=== PATIENT | male | born 2000 | race Caucasian/White ===

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

== ENCOUNTER 2022-01-13 15:46 | Emergency (ER) | payer BC, OTHER ==
[~2022-01-13] VITALS: Ht 181 cm; Wt 112.0 kg
[2022-01-13] MEDS ORDERED: NS IV 1000 ML 1,000 ML IV STA (15:58)
[2022-01-13] MEDS ORDERED: KETOROLAC 30 MG/ML VIAL IVP STA (15:58)
[2022-01-13 16:25] LABS: BASOPHILS % (AUTO) 0 % (0-10); EOSINOPHILS % (AUTO) 0 % (0-10); HEMATOCRIT 44 % (40-54); HEMOGLOBIN 15.6 g/dL (13.3-17.7); LYMPHOCYTES % (AUTO) 9 % (12-44); MEAN CORPUSCULAR HEMOGLOBIN 30 pg (25-34); MEAN CORPUSCULAR HGB CONC 35 g/dL (32-36); MEAN CORPUSCULAR VOLUME 85 fL (80-99); MEAN PLATELET VOLUME 9.9 fL (9.0-12.2); MONOCYTES # (AUTO) 0.6 10^3/uL (0.0-1.0); MONOCYTES % (AUTO) 5 % (0-12); NEUTROPHILS # (AUTO) 9.2 10^3/uL (1.8-7.8); NEUTROPHILS % (AUTO) 85 % (42-75); PLATELET COUNT 200 10^3/uL (130-400); WHITE BLOOD COUNT 10.9 10^3/uL (4.3-11.0)
--- NOTE | 2022-01-13 16:28 | ED GI ---
General Chief Complaint: Abdominal/GI Problems Stated Complaint: ABD PAIN Nursing Triage Note: Patient has presented to ER with cc of left side abd tenderness, loose stools, and nausea for the last 3 days. He reports that he vomited 2 days ago. He did take pepto bismol for his symptoms. History of Present Illness Date Seen by Provider: Jan 13, 2022 Time Seen by Provider: 16:01 Initial Comments 21-year-old male presents with diffuse abdominal pain. He reports that started 3 days ago with initially some left back pain that is radiating into the left mid abdomen and now into both left lower abdomens. He reports he vomited 2 days ago. That he has been having some diarrhea. These taken some Pepto for symptoms but with minimal relief. He has not vomited since 2 days ago. He denies any fever or chills. Patient came in today because the symptoms keep getting worse. Patient denies any fever or chills. He denies any urinary symptoms, cough, sore throat or other systemic complaints. Allergies and Home Medications Allergies Coded Allergies: No Known Drug Allergies (Unverified , 06/21/19) Patient Home Medication List Home Medication List Reviewed: Yes Ondansetron (Ondansetron Odt) 4 Mg Tab.rapdis, 4 MG PO Q6H PRN for NAUSEA/VOMITING Prescribed by: PIPER DELEON on 01/13/22 1508 Review of Systems Review of Systems Constitutional: No chills, No fever Respiratory: Denies Cough, Denies Shortness of Air Cardiovascular: Denies Chest Pain, Denies Lightheadedness Gastrointestinal: Abdominal Pain, Diarrhea, Nausea, Vomiting Genitourinary: No Symptoms Reported Musculoskeletal: back pain Skin: no symptoms reported Psychiatric/Neurological: No Symptoms Reported Endocrine: No Symptoms Reported Hematologic/Lymphatic: No Symptoms Reported Past Ejncpnr-Ebozby-Blfnof Hx Patient Social History Tobacco Use?: Yes Substance use?: No Alcohol Use?: Yes Alcohol type: Beer Alcohol Frequency: Daily Seasonal Allergies Seasonal Allergies: No Past Medical History Surgeries: Yes (Cranial Surgery to reshape skull bones) Respiratory: No Cardiac: No Neurological: No Genitourinary: No Gastrointestinal: No Musculoskeletal: Yes (Craniosinastosis) Endocrine: No HEENT: No Cancer: No Psychosocial: No Integumentary: No Physical Exam Vital Signs Vital Signs - First Documented 01/13/22 15:59 Temp 36.8 Pulse 120 Resp 16 B/P (MAP) 139/92 (108) Pulse Ox 98 O2 Delivery Room Air Capillary Refill : Height/Weight/BMI Height: '" Weight: lbs. oz. kg; 34.00 BMI Method: General Appearance: WD/WN, no apparent distress Respiratory: chest non-tender, lungs clear, normal breath sounds Cardiovascular: normal peripheral pulses, regular rate, rhythm Gastrointestinal: soft; No distended, No guarding, No rebound; tenderness (Diffuse) Neurologic/Psychiatric: alert, normal mood/affect, oriented x 3 Skin: normal color, warm/dry Progress/Results/Core Measures Results/Orders Lab Results Laboratory Tests Test 01/13/22 16:14 01/13/22 17:06 Range/Units White Blood Count 10.9 4.3-11.0 10^3/uL Red Blood Count 5.19 4.30-5.52 10^6/uL Hemoglobin 15.6 13.3-17.7 g/dL Hematocrit 44 40-54 % Mean Corpuscular Volume 85 80-99 fL Mean Corpuscular Hemoglobin 30 25-34 pg Mean Corpuscular Hemoglobin Concent 35 32-36 g/dL Red Cell Distribution Width 11.9 10.0-14.5 % Platelet Count 200 130-400 10^3/uL Mean Platelet Volume 9.9 9.0-12.2 fL Immature Granulocyte % (Auto) 0 % Neutrophils (%) (Auto) 85 H 42-75 % Lymphocytes (%) (Auto) 9 L 12-44 % Monocytes (%) (Auto) 5 0-12 % Eosinophils (%) (Auto) 0 0-10 % Basophils (%) (Auto) 0 0-10 % Neutrophils # (Auto) 9.2 H 1.8-7.8 10^3/uL Lymphocytes # (Auto) 1.0 1.0-4.0 10^3/uL Monocytes # (Auto) 0.6 0.0-1.0 10^3/uL Eosinophils # (Auto) 0.0 0.0-0.3 10^3/uL Basophils # (Auto) 0.0 0.0-0.1 10^3/uL Immature Granulocyte # (Auto) 0.0 0.0-0.1 10^3/uL Sodium Level 138 135-145 MMOL/L Potassium Level 3.9 3.6-5.0 MMOL/L Chloride Level 102 98-107 MMOL/L Carbon Dioxide Level 19 L 21-32 MMOL/L Anion Gap 17 H 5-14 MMOL/L Blood Urea Nitrogen 7 7-18 MG/DL Creatinine 0.81 0.60-1.30 MG/DL Estimat Glomerular Filtration Rate 129 BUN/Creatinine Ratio 9 Glucose Level 100 70-105 MG/DL Calcium Level 9.3 8.5-10.1 MG/DL Corrected Calcium 8.9 8.5-10.1 MG/DL Magnesium Level 1.7 1.6-2.4 MG/DL Total Bilirubin 0.3 0.1-1.0 MG/DL Aspartate Amino Transf (AST/SGOT) 32 5-34 U/L Alanine Aminotransferase (ALT/SGPT) 74 H 0-55 U/L Alkaline Phosphatase 78 40-136 U/L C-Reactive Protein 5.93 H <0.50 MG/DL Total Protein 7.7 6.4-8.2 GM/DL Albumin 4.5 3.2-4.5 GM/DL Urine Color YELLOW Urine Clarity CLEAR Urine pH 6.0 5-9 Urine Specific [place] 1.020 1.016-1.022 Urine Protein NEGATIVE NEGATIVE Urine Glucose (UA) NEGATIVE NEGATIVE Urine Ketones 2+ H NEGATIVE Urine Nitrite NEGATIVE NEGATIVE Urine Bilirubin 1+ H NEGATIVE Urine Urobilinogen 0.2 < = 1.0 MG/DL Urine Leukocyte Esterase NEGATIVE NEGATIVE Urine RBC (Auto) TRACE-I H NEGATIVE Urine RBC 2-5 H /HPF Urine WBC RARE /HPF Urine Squamous Epithelial Cells NONE /HPF Urine Crystals NONE /LPF Urine Bacteria NEGATIVE /HPF Urine Casts NONE /LPF Urine Mucus MODERATE H /LPF Urine Culture Indicated NO My Orders Orders - DELEON,PIPER L DO Cbc With Automated Diff (01/13/22 15:58) Comprehensive Metabolic Panel (01/13/22 15:58) Magnesium (01/13/22 15:58) Ua Culture If Indicated (01/13/22 15:58) Crp Fs (01/13/22 15:58) Ns Iv 1000 Ml (Sodium Chloride 0.9%) (01/13/22 15:58) Ketorolac Injection (Toradol Injection) (01/13/22 15:58) Abdomen Flat & Upright/Decub (01/13/22 15:58) Ct Abdomen/Pelvis Wo (01/13/22 17:19) Ondansetron Oral Dissolve Tab (Zofran (01/13/22 18:10) Vital Signs/I&O 01/13/22 01/13/22 15:59 18:03 Temp 36.8 36.8 Pulse 120 98 Resp 16 16 B/P (MAP) 139/92 (108) 131/85 Pulse Ox 98 98 O2 Delivery Room Air Room Air Blood Pressure Mean: 108 Progress Progress Note : Progress Note Patient's likely with a viral syndrome. Patient did have pains over the flank h as some blood in his urine and some vomiting so we did CT him for kidney stone it was negative. There was no other acute findings on the CT for any other intra-abdominal issues. Patient will be prescribed Zofran. Recommended clear liquid diet Tylenol and ibuprofen as needed. Patient stable and discharged Diagnostic Imaging Diagonstic Imaging: CT Plain Films/CT/US/NM/MRI: abdomen Comments Date of Exam:01/13/22 CT ABDOMEN/PELVIS WO PROCEDURE: CT abdomen and pelvis without contrast. TECHNIQUE: Multiple contiguous axial images were obtained through the abdomen and pelvis without the use of intravenous contrast. Auto Exposure Controls were utilized during the CT exam to meet ALARA standards for radiation dose reduction. INDICATION: Flank pain. Hematuria. COMPARISON: Abdominal radiographs from 01/13/2022. FINDINGS: Diffuse fatty infiltration of the liver. The gallbladder, pancreas, spleen, adrenals, kidneys, collecting systems and bladder are negative on this noncontrast exam. Small amount of contrast within the small bowel. No evidence of bowel obstruction. Normal appendix. No free intraperitoneal air or fluid. No lymphadenopathy. No acute osseous findings. IMPRESSION: 1. No acute CT findings in the abdomen or pelvis. 2. Hepatic steatosis. Reviewed: Reviewed/Discussed Diagonstic Imaging: Xray Plain Films/CT/US/NM/MRI: abdomen Comments Date of Exam:01/13/22 ABDOMEN FLAT & UPRIGHT/DECUB INDICATION: Lower abdominal pain and diarrhea FINDINGS: Right pelvic calcifications are likely phleboliths but in the appropriate clinical scenario could reflect a distal ureteral stone or stones. The bowel gas pattern unremarkable. No evidence for obstruction. No abnormal fecal loading. IMPRESSION: No acute finding identified. Right pelvic calcifications of uncertain etiology. Reviewed: Reviewed by Me, Reviewed/Discussed Departure Impression Primary Impression: Viral gastroenteritis Disposition: 01 HOME, SELF-CARE Condition: Stable Departure-Patient Inst. Referrals: NO,LOCAL PHYSICIAN (PCP/Family) Primary Care Physician Patient Instructions: Viral Gastroenteritis in Adults Add. Discharge Instructions: Clear liquid diet, advance diet as tolerated Tylenol or ibuprofen as needed for discomfort Encourage you to drink plenty of fluid All discharge instructions reviewed with patient and/or family. Voiced understanding. Scripts Ondansetron (Ondansetron Odt) 4 Mg Tab.rapdis 4 MG PO Q6H PRN for NAUSEA/VOMITING, #20 TAB 0 Refills Prov: PIPER DELEON DO 01/13/22 PIPER DELEON DO Jan 13, 2022 16:28
--- NOTE | 2022-01-13 16:33 | Diagnostic Imaging Report ---
INDICATION: Lower abdominal pain and diarrhea FINDINGS: Right pelvic calcifications are likely phleboliths but in the appropriate clinical scenario could reflect a distal ureteral stone or stones. The bowel gas pattern unremarkable. No evidence for obstruction. No abnormal fecal loading. IMPRESSION: No acute finding identified. Right pelvic calcifications of uncertain etiology. Dictated by: Dictated on workstation # [id number]
[2022-01-13 16:43] LABS: ALBUMIN 4.5 GM/DL (3.2-4.5); BILIRUBIN,TOTAL 0.3 MG/DL (0.1-1.0); CALCIUM 9.3 MG/DL (8.5-10.1); CREATININE SERUM 0.81 MG/DL (0.60-1.30); MAGNESIUM 1.7 MG/DL (1.6-2.4); POTASSIUM 3.9 MMOL/L (3.6-5.0); TOTAL PROTEIN 7.7 GM/DL (6.4-8.2)
[2022-01-13 17:13] LABS: CLARITY,URINE CLEAR; COLOR,URINE YELLOW; PROTEIN,URINE NEGATIVE (NEGATIVE)
[2022-01-13 17:14] LABS: BACTERIA,URINE NEGATIVE /HPF; BILIRUBIN,URINE 1+ (NEGATIVE); GLUCOSE, URINE (UA) NEGATIVE (NEGATIVE); KETONES,URINE 2+ (NEGATIVE); LEUKOCYTE ESTERASE ,URINE NEGATIVE (NEGATIVE); NITRITE,URINE NEGATIVE (NEGATIVE); WBC,URINE RARE /HPF
--- NOTE | 2022-01-13 17:49 | Diagnostic Imaging Report ---
PROCEDURE: CT abdomen and pelvis without contrast. TECHNIQUE: Multiple contiguous axial images were obtained through the abdomen and pelvis without the use of intravenous contrast. Auto Exposure Controls were utilized during the CT exam to meet ALARA standards for radiation dose reduction. INDICATION: Flank pain. Hematuria. COMPARISON: Abdominal radiographs from 01/13/2022. FINDINGS: Diffuse fatty infiltration of the liver. The gallbladder, pancreas, spleen, adrenals, kidneys, collecting systems and bladder are negative on this noncontrast exam. Small amount of contrast within the small bowel. No evidence of bowel obstruction. Normal appendix. No free intraperitoneal air or fluid. No lymphadenopathy. No acute osseous findings. IMPRESSION: 1. No acute CT findings in the abdomen or pelvis. 2. Hepatic steatosis. Dictated by: Dictated on workstation # [id number]
[2022-01-13] MEDS ORDERED: ONDA4TAB11 PO (17:59)
[2022-01-13 18:03] VITALS: BP 131/85
[2022-01-13] MEDS ORDERED: ONDANSETRON 4 MG (ZOFRAN) ORAL DISSOLVE TAB PO STA (18:10)
== END 2022-01-13 18:03 | disposition home or self-care (01) ==
LOC: EDUNIT# 15:46 → ER FS 15:47
DX: A08.4 Viral intestinal infection, unspecified (principal); Z72.0 Tobacco use; Z28.310 Unvaccinated for COVID-19
CPT/HCPCS: 36415; 74019; 74176; 80053; 81000; 83735; 85025; 86141; 96361; 96374